=== PATIENT | female | born 1975 | race Caucasian/White ===

== ENCOUNTER → 2018-05-01 08:21 | Outpatient (CLI) | payer OTHER, SELFPAY ==
--- NOTE | 2018-05-01 | DI.MRI.S_ITS ---
PROCEDURE: MR KNEE LT WO CON INDICATIONS: INTERNAL DERANGMENT OF LEFTK NEE TECHNIQUE: Noncontrast sagittal PD fast spin echo and T2 fast spin echo with fat saturation, sagittal 3-D FLASH with fat saturation; coronal T1 spin echo and PD fast spin echo with fat saturation, and axial PD fast spin echo with fat saturation through the knee. COMPARISON: None. FINDINGS: Image quality: Excellent. Menisci: The medial and lateral menisci demonstrate normal morphology and internal signal. The meniscal root ligaments appear intact. Cruciate ligaments: The anterior and posterior cruciate ligaments appear intact. Medial structures: There is low-grade MCL sprain. No evidence of MCL rupture. The posterior oblique ligament, semimembranosus tendon insertions, oblique popliteal ligament, and meniscocapsular junction appear intact. Visualized portions of the pes anserinus tendons appear normal. No abnormal bursal fluid. Lateral structures: The lateral collateral ligament, long and short heads of the biceps femoris tendon appear intact. The popliteus tendon appears normal; the popliteofibular ligament appears intact. The posterosuperior and anteroinferior popliteomeniscal fascicles appear intact. The arcuate and fabellofibular ligaments appear intact, on either side of the lateral inferior geniculate artery. Iliotibial band appears normal. Anterior structures: The quadriceps and patellar tendons appear intact. Patellar alignment is normal. No femoral trochlear dysplasia or ventral trochlear prominence. No edema in the infrapatellar fat pad. Bones and cartilage: No bone marrow contusions or fractures. Mild tricompartmental osteoarthritis is seen with joint space narrowing and thinning of articulating cartilages particularly involving medial femoral tibial compartment. Patellar cartilage is grossly intact. Joint space: There is small amount of joint effusion. No gross loose body. A small popliteal cyst is also seen. Normal appearing synovial plicae are incidentally noted. IMPRESSION: 1. Mild tricompartment osteoarthritis more prominent in the medial femorotibial compartment. No marrow edema. No fracture or dislocation. Small joint effusion. Small popliteal cyst. 2. Cruciate ligaments are intact. No evidence of focal meniscal tear. 3. Low-grade proximal to mid MCL sprain. No evidence of MCL or LCL tear. Dictated by: Obinna Salcedo M.D. on 05/01/2018 at 11:42 Approved by: Obinna Salcedo M.D. on 05/01/2018 at 12:22
== END ==
PROVIDERS: PCP Nurse Practitioner Gerontology; Visit Provider Orthopaedic Surgery
DX: M17.12 Unilateral primary osteoarthritis, left knee (principal); M25.462 Effusion, left knee; M71.22 Synovial cyst of popliteal space [Baker], left knee; S83.412A Sprain of medial collateral ligament of left knee, initial encounter
CPT/HCPCS: 73721

== ENCOUNTER 2018-05-12 06:40 | Day surgery (SDC) | payer OTHER, SELFPAY ==
[2018-05-12 07:16] VITALS: BP 122/82; PULSE 92; RESP 17; TEMP 36.4; O2SAT 98; BMI 43.8
--- NOTE | 2018-05-12 07:51 | PM.HP.1 ---
History of Present Illness Date Patient Seen: 05/12/18 Time Patient Seen: 07:51 Chief complaint: [id number] COLONOSCOPY Narrative: 42-year-old diabetic obese female who presents for colorectal surveillance given a very strong family history of colorectal neoplasia. She is currently asymptomatic. She was seen in the office March 06, 2018. Please see that history physical examination for further details. There have been no significant changes since that time. Patient History Family & Social History Social History: household members family Meds Home Medications Medication Instructions Recorded Confirmed Type insulin NPH and regular human 20 unit SUBCUT DAILY 05/12/18 05/12/18 History [Novolin 70/30 U-100 Insulin] Allergies Allergy/AdvReac Type Severity Reaction Status Date / Time tramadol Allergy Intermediate Headache Verified 05/12/18 07:14 codeine Allergy Mild upset Verified 05/12/18 07:14 stomach pollen extracts Allergy Mild stuffy nose Verified 05/12/18 07:14 acetaminophen [From Tylenol] AdvReac Severe unable to Verified 05/12/18 07:12 take due to liver Review of Systems Review of Systems All systems reviewed & are unremarkable except as noted in HPI and below Exam Vital Signs (past 8 hours): - 05/12/18 07:16 Temperature 97.6 F Pulse Rate 92 H Respiratory Rate 17 Blood Pressure 122/82 Pulse Oximetry 98 Oxygen Delivery Method Room Air Narrative Exam Narrative: Obese female in no acute distress. Alert oriented x3. Her mother is at the bedside throughout my visit. Regular rate and rhythm Abdomen obese but soft and nondistended. Nontender Extremities show no clubbing or cyanosis Overall the examination has not changed since her initial evaluation of March 06, 2018. Objective Labs Labs: No new laboratory or radiographic studies for review. Fingerstick blood sugar in preoperative area today is 240 Assessment & Plan Plan: Assessment/Plan Narrative: 42-year-old female with strong family history of colorectal neoplasia. She requires colorectal surveillance. I recommended colonoscopy. Technical details were once again reviewed. Risks, benefits, and alternatives were explained. Risks including but not limited to sedation, aspiration, bleeding, pain, missed lesion, incomplete examination, need for further radiographic studies, colonic perforation, need for major abdominal surgery, and all attendant risks of major surgery were discussed at length. Possibility of nondiagnostic study was also mentioned. All questions were answered to her satisfaction, and she voiced understanding. Consent was placed on the chart. We will proceed as above.
[2018-05-12] MEDS: SODIUM CHLORIDE 0.9% 1,000 ML 200 ML IV (07:52)
--- NOTE | 2018-05-12 07:54 | PM.PREOP ---
Pre-operative Note Interval Note Pre-op Check: Yes History & Physical Reviewed by Physician, Yes Exam Performed and Yes History & Physical exam performed today by Physician Changes: No H&P completed within 30 days and has changed as indicated here:: Patient seen and examined again today. History physical examination is updated. No changes since the original documentation of March 06, 2018. Proceed with colonoscopy today as planned. ASA Class (for procedural sedation): II
[2018-05-12] MEDS: MIDAZOLAM 5 MG/5 ML VIAL IV (08:08)
[2018-05-12] MEDS: fentaNYL 250 MCG/5 ML INJ IV (08:09)
[2018-05-12 08:20] VITALS: BP 108/76; PULSE 81; RESP 18; TEMP 36.9; O2SAT 98
--- NOTE | 2018-05-12 08:21 | PM.OP.ENDO ---
Operative Date/Time/Diagnoses Date of procedure: 05/12/18 Time of procedure: 08:21 Pre-op diagnosis: Family history of colon cancer Post-op diagnosis: other (Diverticulosis but otherwise normal colon and rectum) Procedure & Clinicians Study performed: 1. Sedation per surgeon 2. Colonoscopy Same procedure as scheduled: Yes Indications: 42-year-old female with strong family history of colorectal neoplasia. She was recommended undergo surveillance colonoscopy. Surgeon: Percy Weaver Procedure Notes SCOAP/Timeout: Yes Procedure in detail: After obtaining informed consent, the patient was brought to the GI suite and placed in the left lateral decubitus position on the examination table. After placement of appropriate monitors, the patient was given incremental doses of Versed and Fentanyl until an appropriate level of sedation was achieved. A time out was held per SCOAP protocol. A digital rectal examination was performed and did not reveal any masses or obstructing lesions. The colonoscope was gently passed into the patient's anus and the entire colon navigated to the level of the cecum with minimal difficulty. Bowel preparation was suboptimal in some segments of the colon and was cleared as much as possible with copious irrigation. Once in the cecum, the scope was withdrawn being sure to go before and beyond all mucosal folds and prominences and get an excellent examination. The findings are noted above. At the level of the rectal vault, the scope was retroflexed and the internal anal canal was examined. The scope was straightened and air aspirated from the colon. The instrument was removed from the patient's body and the procedure was concluded. The patient was allowed to awaken from sedation without difficulty and taken to the post-anesthesia care unit in good condition. Scope withdrawal time: 9:27 min Sedation minutes: 18 Findings: diverticulosis and other findings (Otherwise normal colon and rectum) Specimen(s): none sent Complications: none Recommendations: Colonscopy in 10 years and High fiber diet Plan for aftercare: 1. Discharge home Follow up: as needed Disposition: PACU
[2018-05-12 08:25] VITALS: BP 95/57; PULSE 79; RESP 18; O2SAT 96
[2018-05-12 08:35] VITALS: BP 98/69; PULSE 78; RESP 15; TEMP 36.6; O2SAT 96
== END 2018-05-12 08:45 | disposition home or self-care (01) ==
PROVIDERS: PCP Nurse Practitioner Gerontology; Visit Provider Surgery
PROC: 0DJD8ZZ Inspection of Lower Intestinal Tract, Via Natural or Artificial Opening Endoscopic (ICD-10-PCS; CPT 45378; principal; 2018-05-12 07:45)
DX: Z12.11 Encounter for screening for malignant neoplasm of colon (principal); Z80.0 Family history of malignant neoplasm of digestive organs; K57.30 Diverticulosis of large intestine without perforation or abscess without bleeding; E11.9 Type 2 diabetes mellitus without complications; E66.9 Obesity, unspecified; Z79.4 Long term (current) use of insulin
CPT/HCPCS: 45378; 99152; J2250; J3010

== ENCOUNTER → 2020-10-05 11:35 | Outpatient (CLI) | payer OTHER, SELFPAY ==
--- NOTE | 2020-10-05 11:39 | DI.RAD.S_ITS ---
PROCEDURE: XR KNEE LT 3V INDICATIONS: left knee pain TECHNIQUE: 3 views of the knee were acquired. COMPARISON: None. FINDINGS: Bones: No fractures or dislocations. Mild to moderate tricompartmental osteoarthritis is seen more prominent in medial femoral tibial compartment. No suspicious bony lesions. Soft tissues: Small suprapatellar joint effusion is seen. No suspicious soft tissue calcifications. IMPRESSION: [id number] tricompartmental osteoarthritis and small suprapatellar joint effusion. Dictated by: Obinna Salcedo M.D. on 10/05/2020 at 14:06 Approved by: Obinna Salcedo M.D. on 10/05/2020 at 14:07
== END ==
PROVIDERS: PCP Student in an Organized Health Care Education/Training Program; Referring Provider Student in an Organized Health Care Education/Training Program; Visit Provider Student in an Organized Health Care Education/Training Program
DX: M25.562 Pain in left knee (principal); M17.12 Unilateral primary osteoarthritis, left knee
CPT/HCPCS: 73562

== ENCOUNTER → 2021-03-09 07:59 | Outpatient (CLI) | payer OTHER, SELFPAY ==
--- NOTE | 2021-03-09 | DI.MRI.S_ITS ---
PROCEDURE: MR KNEE LT WO CON INDICATIONS: Pain in left knee TECHNIQUE: Noncontrast sagittal PD fast spin echo and T2 fast spin echo with fat saturation, sagittal 3-D FLASH with fat saturation; coronal T1 spin echo and PD fast spin echo with fat saturation, and axial PD fast spin echo with fat saturation through the knee. COMPARISON: [facility], MR, MR KNEE LT WO CON, 05/01/2018, 9:05. FINDINGS: Image quality: Excellent. Menisci: There is medial meniscal extrusion. There is circumferential tear of the posterior horn of the medial meniscus extending to the posterior root. The lateral meniscus demonstrates normal morphology and internal signal. The meniscal root ligaments appear intact. Cruciate ligaments: The anterior and posterior cruciate ligaments appear intact. Medial structures: The medial collateral ligament appears intact. The posemimembranosus tendon insertions and meniscocapsular junction appear intact. Visualized portions of the pes anserinus tendons appear normal. No abnormal bursal fluid. Lateral structures: The lateral collateral ligament, long and short heads of the biceps femoris tendon appear intact. The popliteus tendon appears normal. Iliotibial band appears normal. Anterior structures: The quadriceps and patellar tendons appear intact. Patellar alignment is normal. No femoral trochlear dysplasia or ventral trochlear prominence. No edema in the infrapatellar fat pad. Bones and cartilage: No bone marrow contusions or fractures. There is chondral malacia of the femorotibial compartments. Full-thickness cartilage fissures are seen in the medial femoral condyle and lateral tibial plateau. Joint space: There is moderate to large knee joint effusion. There is a large Girard cyst Girard's cyst. There is synovial thickening. IMPRESSION: 1. Medial meniscus extrusion. There is circumferential tear of the posterior horn of the medial meniscus extending to the posterior root. 2. Tricompartmental chondromalacia. 3. Kmjibpof-su-xncco knee joint effusion and synovial thickening consistent with synovitis. 4. A large Girard's cyst. Dictated by: Sunny Spicer M.D. on 03/09/2021 at 9:09 Approved by: Sunny Spicer M.D. on 03/09/2021 at 21:59
== END ==
PROVIDERS: PCP Student in an Organized Health Care Education/Training Program; Referring Provider Student in an Organized Health Care Education/Training Program; Visit Provider Student in an Organized Health Care Education/Training Program
DX: M25.562 Pain in left knee (principal); S83.242A Other tear of medial meniscus, current injury, left knee, initial encounter; M71.22 Synovial cyst of popliteal space [Baker], left knee; M25.462 Effusion, left knee; M94.262 Chondromalacia, left knee
CPT/HCPCS: 73721

== ENCOUNTER → 2021-06-01 14:58 | Outpatient (CLI) | payer OTHER, SELFPAY ==
[2021-06-01 15:33] LABS: Add Manual Diff / Slide Review NO; Basophils Absolute Auto 100 /uL (0-100); Basophils Percent Auto 0.5 % (0-2); Eosinophils Absolute Auto 200 /uL (0-450); Eosinophils Percent Auto 1.8 % (2-4); Hematocrit 41.5 % (36-46); Hemoglobin 14.2 g/dL (12.0-16.0); Lymphocytes Absolute Auto 2700 /uL (1100-4500); Lymphocytes Percent Auto 25.5 % (25-40); Mean Corpuscular HGB Conc 34.3 % (30-36); Mean Corpuscular Hemoglobin 31.5 PG (26-34); Mean Corpuscular Volume 91.8 fL (80-100); Monocytes Absolute Auto 600 /uL (0-900); Monocytes Percent Auto 5.3 % (3-14); Neutrophils Absolute Auto 7000 /uL (1500-7000); Neutrophils Percent Auto 66.9 % (50-75); Platelet Count 343 X10^3/uL (150-400); Red Blood Cell Count 4.52 X10^6/uL (4.0-5.2); Red Cell Distribution Width 13.9 % (11.6-14.8); White Blood Cell Count 10.5 X10^3/uL (4.5-11.0)
[2021-06-01 15:40] LABS: Hemoglobin A1C% w Est Avg Glu 8.4 % (4.0-6.0)
[2021-06-01 15:54] LABS: Appearance Urine UA SL CLOUDY; Bilirubin Urine UA NEGATIVE (NEGATIVE); Color Urine UA YELLOW; Erythrocyte Sedimentation Rate 25 MM/HR (0-20); Glucose Urine UA NEGATIVE (Negative); Ketones Urine UA NEGATIVE (NEGATIVE); Leukocyte Esterase Urine UA NEGATIVE (NEGATIVE); Nitrite Urine UA NEGATIVE (Negative); Occult Blood Urine UA TRACE-LYSED (Negative); Protein Urine UA 2+ (Negative); Specific Gravity Urine UA >=1.030 (1.000-1.035); Urobilinogen Urine UA 0.2 E.U./dL (0.2)
[2021-06-01 16:04] LABS: Amorphous Sediment Urine 2+; Bacteria Urine Many (>30); Culture Indicated Urine Cult Not Indicated; RBC Urine None Seen (0-5/HPF); Squamous Epithelial Cell Urine 10-30 /HPF (0-5/HPF); WBC Urine 1-5/HPF (0-5/HPF)
[2021-06-01 16:14] LABS: BUN Creatinine Ratio 19.3 (6-22); Blood Urea Nitrogen 11 mg/dL (7-17); Carbon Dioxide 30 mmol/L (22-32); Chloride 100 mmol/L (98-107); Estimated Glomerular Filt Rate > 60.0 mL/min (>60); Glucose 157 mg/dL (70-100); HEMOLYSIS < 15 (0-50); Potassium 4.1 mmol/L (3.4-5.1); Sodium 137 mmol/L (137-145); Uric Acid 4.9 mg/dL (2.5-6.2)
[2021-06-01 16:21] LABS: Rheumatoid Factor < 8.6 IU/mL (<12.0)
[2021-06-04 13:57] LABS: ANA Screen, IFA Negative (.)
== END ==
PROVIDERS: PCP Student in an Organized Health Care Education/Training Program; Referring Provider Orthopaedic Surgery; Visit Provider Orthopaedic Surgery
DX: Z01.818 Encounter for other preprocedural examination (principal); Z01.812 Encounter for preprocedural laboratory examination; R73.9 Hyperglycemia, unspecified; N39.0 Urinary tract infection, site not specified; E79.0 Hyperuricemia without signs of inflammatory arthritis and tophaceous disease
CPT/HCPCS: 36415; 80048; 81001; 83036; 84550; 85025; 85651; 86038; 86430; 93005

== ENCOUNTER → 2021-07-13 14:11 | Outpatient (CLI) | payer OTHER, SELFPAY ==
[2021-07-13 15:43] LABS: Hemoglobin A1C% w Est Avg Glu 8.4 % (4.0-6.0)
== END ==
PROVIDERS: PCP Student in an Organized Health Care Education/Training Program; Referring Provider Student in an Organized Health Care Education/Training Program; Visit Provider Student in an Organized Health Care Education/Training Program
DX: E11.21 Type 2 diabetes mellitus with diabetic nephropathy (principal)
CPT/HCPCS: 36415; 83036

== ENCOUNTER → 2022-05-17 07:41 | Outpatient (CLI) | payer OTHER, SELFPAY ==
--- NOTE | 2022-05-17 | DI.MG.S_ITS ---
BILATERAL DIGITAL SCREENING MAMMOGRAM 3D/2D WITH CAD: 05/17/2022 CLINICAL: Routine screening. Comparison is made to exam dated: 08/26/2017 mammogram - out side. There are scattered areas of fibroglandular density in both breasts (category b / 25%-50% glandular tissue). Current study was also evaluated with a Computer Aided Detection (CAD) system. No significant masses, calcifications, or other findings are seen in either breast. There has been no significant interval change. IMPRESSION: NEGATIVE There is no mammographic evidence of malignancy. A 1 year screening mammogram is recommended. Based on the Tyrer Cuzick model (a risk assessment model) the patient's lifetime risk is 7.9% and her 10 year risk is 1.3%. According to the ACR, ACS, and NCCN guidelines, an annual breast MRI exam along with mammogram is recommended if the patient's lifetime risk is 20% or greater. This exam was interpreted at Station ID: [id number]. NOTE: For mammograms, a report in lay terms will be sent to the patient. Approximately 15% of breast malignancies will not be visualized mammographically. In the management of a palpable breast mass, a negative mammogram must not discourage biopsy of a clinically suspicious lesion. Electronically Signed By: Sudheer cat/yuki:05/17/2022 09:19:16 letter sent: Normal Exam ACR BI-RADS Category 1: Negative [id number]
== END ==
PROVIDERS: PCP Family Medicine; Referring Provider Family Medicine; Visit Provider Family Medicine
DX: Z12.31 Encounter for screening mammogram for malignant neoplasm of breast (principal)
CPT/HCPCS: 77063; 77067

== ENCOUNTER → 2023-07-05 08:10 | Outpatient (CLI) | payer OTHER, MEDICAID, SELFPAY ==
--- NOTE | 2023-07-05 08:11 | DI.MG.S_ITS ---
BILATERAL DIGITAL SCREENING MAMMOGRAM 3D/2D WITH CAD: 07/05/2023 CLINICAL: Routine screening. Comparison is made to exams dated: 05/17/2022 mammogram - [facility] and 08/26/2017 mammogram - out [facility]. There are scattered areas of fibroglandular density in both breasts (category b / 25%-50% glandular tissue). Current study was also evaluated with a Computer Aided Detection (CAD) system. No significant masses, calcifications, or other findings are seen in either breast. There has been no significant interval change. IMPRESSION: NEGATIVE There is no mammographic evidence of malignancy. A 1 year screening mammogram is recommended. Based on the Tyrer Cuzick model (a risk assessment model) the patient's lifetime risk is 8.3% and her 10 year risk is 1.6%. According to the ACR, ACS, and NCCN guidelines, an annual breast MRI exam along with mammogram is recommended if the patient's lifetime risk is 20% or greater. This exam was interpreted at Station ID: [id number]. NOTE: For mammograms, a report in lay terms will be sent to the patient. Approximately 15% of breast malignancies will not be visualized mammographically. In the management of a palpable breast mass, a negative mammogram must not discourage biopsy of a clinically suspicious lesion. Electronically Signed By: Bo omer/yuki:07/05/2023 10:03:21 letter sent: Normal Exam ACR BI-RADS Category 1: Negative [id number]
== END ==
LOC: MAMMO 08:10
PROVIDERS: PCP Family Medicine; Referring Provider Family Medicine; Visit Provider Family Medicine
DX: Z12.31 Encounter for screening mammogram for malignant neoplasm of breast (principal)
CPT/HCPCS: 77063; 77067

== ENCOUNTER → 2024-05-04 14:10 | Outpatient (CLI) | payer OTHER, MEDICAID, SELFPAY ==
--- NOTE | 2024-05-04 14:14 | DI.RAD.S_ITS ---
PROCEDURE: XR FOREARM RT 2V INDICATIONS: MASS IN FOREARM TECHNIQUE: 2 views of the forearm were acquired. COMPARISON: None. FINDINGS: Bones: Ulnar minus anomaly noted. No other focal osseous abnormalities. Elbow joint: Minimal elbow degeneration noted with tiny loose body in the radiocapitellar joint less than 3 mm. Soft tissues: There is focal soft tissue swelling in the dorsal aspect of the proximal radius ulna IMPRESSION: Focal swelling in the dorsal soft tissues of the proximal forearm. This is nonspecific could indicate focal edema inflammation or a mass. Suggest either MRI or ultrasound for further evaluation. Mild elbow degeneration with small loose body Dictated by: Kishan Edwards M.D. on 05/05/2024 at 10:07 Approved by: Kishan Edwards M.D. on 05/05/2024 at 10:08
== END ==
PROVIDERS: PCP Family Medicine; Referring Provider Family Medicine; Visit Provider Family Medicine
DX: M19.021 Primary osteoarthritis, right elbow (principal); R22.31 Localized swelling, mass and lump, right upper limb; M24.021 Loose body in right elbow
CPT/HCPCS: 73090

== ENCOUNTER → 2024-05-13 | Outpatient (CLI) | payer OTHER, MEDICAID, SELFPAY ==
--- NOTE | 2024-05-13 16:13 | DI.US.S_ITS ---
PROCEDURE: US EXTREMELY NONVASC UPPER RT INDICATIONS: MASS OF RT FOREARM TECHNIQUE: Real-time scanning was performed of the right formed , with image documentation. COMPARISON: None. FINDINGS: Complex subcutaneous soft tissue mass corresponding to the palpable abnormality measuring 4.3 x 0.8 x 3.2 cm. No significant vascularity. IMPRESSION: Possible evolving hematoma given the history of prior trauma. Recommend clinical correlation and if indicated follow-up exam to resolution and/or change. Dictated by: Mike CASTANEDA Interpreted: Ashwin Giron MD on 05/14/2024 at 15:02 Transcribed by: JUAN A on 05/14/2024 at 15:03 Approved by: Ashwin Giron M.D. on 05/20/2024 at 9:56
== END ==
LOC: US 16:12
PROVIDERS: PCP Family Medicine; Referring Provider Family Medicine; Visit Provider Family Medicine
DX: R22.31 Localized swelling, mass and lump, right upper limb (principal)
CPT/HCPCS: 76882

== ENCOUNTER → 2024-07-20 07:45 | Outpatient (CLI) | payer OTHER, SELFPAY ==
--- NOTE | 2024-07-20 07:47 | DI.MG.S_ITS ---
BILATERAL DIGITAL SCREENING MAMMOGRAM 3D/2D WITH CAD: 07/20/2024 CLINICAL: Routine screening. Comparison is made to exams dated: 07/05/2023 mammogram, 05/17/2022 mammogram - [facility], and 08/26/2017 mammogram - out side. There are scattered areas of fibroglandular density (category b / 25%-50% glandular tissue). Current study was also evaluated with a Computer Aided Detection (CAD) system. No significant masses, calcifications, or other findings are seen in either breast. There has been no significant interval change. IMPRESSION: NEGATIVE There is no mammographic evidence of malignancy. A 1 year screening mammogram is recommended. Based on the Tyrer Cuzick model (a risk assessment model) the patient's lifetime risk is 8.5% and her 10 year risk is 1.7%. According to the ACR, ACS, and NCCN guidelines, an annual breast MRI exam along with mammogram is recommended if the patient's lifetime risk is 20% or greater. This exam was interpreted at Station ID: [id number]. NOTE: For mammograms, a report in lay terms will be sent to the patient. Approximately 15% of breast malignancies will not be visualized mammographically. In the management of a palpable breast mass, a negative mammogram must not discourage biopsy of a clinically suspicious lesion. Electronically Signed By: Fartun Harkins M.D., Ph.D. syo/yuki:07/20/2024 08:28:41 letter sent: Normal Exam ACR BI-RADS Category 1: Negative
== END ==
PROVIDERS: PCP Family Medicine; Referring Provider Family Medicine; Visit Provider Family Medicine
DX: Z12.31 Encounter for screening mammogram for malignant neoplasm of breast (principal)
CPT/HCPCS: 77063; 77067